=== PATIENT | female | born 1985 | race Caucasian/White ===

== ENCOUNTER 2017-12-23 05:56 | Inpatient (IN) | payer OTHER ==
[2017-12-23] MEDS ORDERED: NACL 0.9% 3 ML SYG IV (06:30)
[2017-12-23] MEDS ORDERED: ONDANSETRON 4 MG INJ IV (06:30)
[2017-12-23] MEDS: ACETAMINOPHEN 325 MG TAB PO (06:43)
[2017-12-23] MEDS: SOD CHLORIDE 0.9% 1,000 ML IV ×2 (06:44→16:40)
[2017-12-23 07:38] LABS: ADD MAN DIFF? NO
[2017-12-23 07:43] LABS: WHITE BLOOD COUNT 9.8 10^3/ul (4.8-10.8)
[2017-12-23 07:43] LABS: BASOPHILS % 0.3 % (0.0-2.0); EOSINOPHILS # 0.1 10^3/ul (0.0-0.5); EOSINOPHILS % 0.6 % (0.0-7.0); HEMATOCRIT 34.1 % (37.0-47.0); MEAN CORPUSCULAR HEMOGLOBIN 31.1 pg (29.0-33.0); MEAN CORPUSCULAR HGB CONC 32.3 g/dl (32.0-37.0); MEAN CORPUSCULAR VOLUME 96.3 fl (82.0-101.0); MEAN PLATELET VOLUME 11.9 fl (7.4-10.4); MONOCYTE # 0.8 10^3/ul (0.3-0.9); MONOCYTES % 8.3 % (0.0-11.0); NEUTROPHIL # 6.9 10^3/ul (1.6-7.5); NEUTROPHILS % 70.4 % (39.0-77.0); PLATELET COUNT 185 10^3/UL (140-415); RED BLOOD COUNT 3.54 10^6/ul (4.20-5.40); RED CELL DISTRIBUTION WIDTH 13.2 % (11.5-14.5)
[2017-12-23 08:21] LABS: ALANINE AMINOTRANSFERASE 153 IU/L (13-69); ALBUMIN 2.7 g/dl (3.3-4.9); ALBUMIN/GLOBULIN RATIO 0.96; ALKALINE PHOSPHATASE 99 IU/L (42-121); ANION GAP 9 (8-16); ASPARTATE AMINO TRANSFERASE 101 IU/L (15-46); BILIRUBIN,INDIRECT 0.3 mg/dl (0-1.1); BILIRUBIN,TOTAL 0.3 mg/dl (0.2-1.3); BLOOD UREA NITROGEN 4 mg/dl (7-20); CALCIUM 8.2 mg/dl (8.4-10.2); CARBON DIOXIDE 25 mmol/L (21-31); CHLORIDE 111 mmol/L (97-110); CHOL/HDL RATIO 2.9 RATIO; CHOLESTEROL 139 mg/dl (100-200); CREATININE 0.59 mg/dl (0.44-1.00); GLUCOSE 88 mg/dl (70-220); HDL CHOLESTEROL 47 mg/dl (34-82); LDL CHOLESTEROL,CALCULATED 65 mg/dl; MAGNESIUM 1.9 mg/dl (1.7-2.5); POTASSIUM 3.6 mmol/L (3.5-5.1); SODIUM 141 mmol/L (135-144); TOTAL PROTEIN 5.5 g/dl (6.1-8.1); TRIGLYCERIDES 136 mg/dl (0-149)
[2017-12-23 10:59] LABS: LIPASE 81 U/L (23-300)
[2017-12-23 10:59] LABS: AMYLASE 41 U/L (11-123)
[2017-12-24] MEDS: SOD CHLORIDE 0.9% 1,000 ML IV ×2 (02:16→12:48)
[2017-12-24 05:53] LABS: ADD MAN DIFF? NO
[2017-12-24 05:59] LABS: BASOPHILS % 0.4 % (0.0-2.0); EOSINOPHILS # 0.1 10^3/ul (0.0-0.5); EOSINOPHILS % 1.2 % (0.0-7.0); HEMOGLOBIN 10.8 g/dl (12.0-16.0); LYMPHOCYTES # 2.6 10^3/ul (0.8-2.9); LYMPHOCYTES % 27.9 % (15.0-51.0); MEAN CORPUSCULAR HEMOGLOBIN 31.2 pg (29.0-33.0); MEAN CORPUSCULAR HGB CONC 32.7 g/dl (32.0-37.0); MEAN CORPUSCULAR VOLUME 95.4 fl (82.0-101.0); MEAN PLATELET VOLUME 12.3 fl (7.4-10.4); MONOCYTE # 0.7 10^3/ul (0.3-0.9); MONOCYTES % 7.9 % (0.0-11.0); NEUTROPHIL # 5.8 10^3/ul (1.6-7.5); NEUTROPHILS % 62.3 % (39.0-77.0); PLATELET COUNT 184 10^3/UL (140-415); RED BLOOD COUNT 3.46 10^6/ul (4.20-5.40); RED CELL DISTRIBUTION WIDTH 12.9 % (11.5-14.5)
[2017-12-24 05:59] LABS: WHITE BLOOD COUNT 9.3 10^3/ul (4.8-10.8)
[2017-12-24 06:23] LABS: MAGNESIUM 1.7 mg/dl (1.7-2.5)
[2017-12-24 06:23] LABS: PHOSPHORUS 3.7 mg/dl (2.5-4.9)
[2017-12-24 06:26] LABS: ALANINE AMINOTRANSFERASE 108 IU/L (13-69); ALBUMIN 2.7 g/dl (3.3-4.9); ALBUMIN/GLOBULIN RATIO 0.96; ALKALINE PHOSPHATASE 93 IU/L (42-121); ANION GAP 12 (8-16); ASPARTATE AMINO TRANSFERASE 49 IU/L (15-46); BILIRUBIN,INDIRECT 0.3 mg/dl (0-1.1); BILIRUBIN,TOTAL 0.3 mg/dl (0.2-1.3); BLOOD UREA NITROGEN 3 mg/dl (7-20); CARBON DIOXIDE 20 mmol/L (21-31); CHLORIDE 110 mmol/L (97-110); CREATININE 0.53 mg/dl (0.44-1.00); GLUCOSE 75 mg/dl (70-220); LIPASE 51 U/L (23-300); POTASSIUM 3.1 mmol/L (3.5-5.1); SODIUM 139 mmol/L (135-144); TOTAL PROTEIN 5.5 g/dl (6.1-8.1)
[2017-12-24 06:27] LABS: AMYLASE < 30 U/L (11-123)
[2017-12-24] MEDS: ACETAMINOPHEN 325 MG TAB PO (10:51)
== END 2017-12-24 15:20 | disposition home or self-care (01) | DRG 781 ==
LOC: MS2 05:56
PROVIDERS: Internal Medicine
DX: O26.612 Liver and biliary tract disorders in pregnancy, second trimester (principal); K83.1 Obstruction of bile duct; Z3A.24 24 weeks gestation of pregnancy; Z90.49 Acquired absence of other specified parts of digestive tract
CPT/HCPCS: 80053; 80061; 82150; 83036; 83690; 83735; 84100; 84443; 85025